=== PATIENT | female | born 1965 | race Caucasian/White ===

== ENCOUNTER 2019-12-22 08:36 | Inpatient (IN) ==
[2019-12-22] MEDS ORDERED: VANCOMYCIN 1 GM/NS 1 GM/250 ML IVPB IV ONE (09:00)
[2019-12-22] MEDS ORDERED: VANCOMYCIN IV PER PHARMACY MISC SCH (09:00)
[2019-12-22] MEDS ORDERED: ZOFRAN IV PRN (10:59)
[2019-12-22] MEDS ORDERED: VENTOLIN HFA INH PRN (11:05)
[2019-12-22 11:13] LABS: BASO# 0.07 X1000 (0.0-0.2); BASO% 0.8 % (0.0-0.8); EOS# 0.18 X1000 (0.0-0.7); HEMOGLOBIN 11.7 g/dL (12.0-16.0); IMM GRAN# 0.08 X1000 (0.0-0.04); IMM GRAN% 0.9 % (0.0-0.5); LYMPH# 1.12 X1000 (1.2-3.4); LYMPH% 12.4 % (20.5-51.1); MCH 27.7 PG (27-31); MCHC 29.3 g/dL (33-37); MCV 94.6 FL (81-99); MONO# 0.71 X1000 (0.11-0.59); MONO% 7.9 % (1.7-9.3); MPV 10.3 FL (7.4-10.4); NEUT# 6.86 X1000 (1.4-6.5); PLT 205 X1000 (130-400); RBC 4.23 XMIL (4.2-5.4); RDW 16.3 % (11.5-14.5); WBC 9.02 X1000 (4.8-10.8)
--- NOTE | 2019-12-22 11:19 | CONSULTATION ---
DATE OF CONSULTATION: 12/22/2019 REASON FOR CONSULTATION: Diabetes management and antibiotic selection. REASON FOR ADMISSION: Left foot cellulitis with diabetic foot ulcer on the left great toe. HISTORY OF PRESENT ILLNESS: Ms. Amita Johnson is a 54-year-old female with a medical history of diabetes mellitus type 2. She has had both second toes amputated. She has had a partial amputation of the right great toe due to MRSA in the past, and an ulcer in that area. She has got a history of aortic stenosis with a murmur, hypothyroidism, arthritis, sleep apnea, and hypertension who has been sent here as a direct admit from Dr. Suarez due to a left great toe diabetic foot ulcer along with cellulitis and IV antibiotic therapy. I believe that there is going to be plans for possible surgical intervention on the left great toe on possibly . Currently, laboratory data is pending. PAST MEDICAL HISTORY: 1. Depression. 2. Diabetes mellitus type 2. 3. Hypertension. 4. Psoriasis. 5. Arthritis. 6. Obstructive sleep apnea, does not wear CPAP. 7. Hypothyroidism. 8. Hyperlipidemia. 9. Aortic stenosis with murmur. 10. Seasonal allergies. 11. Right great toe MRSA with ulcer in the past and partial amputation. 12. Morbid obesity. PAST SURGICAL HISTORY: 1. Bilateral 2nd toes amputated. 2. Right great toe partial amputation. 3. Hysterectomy. SOCIAL HISTORY: Denies tobacco. Drinks wine about twice a year. She denies any illicit drug use. Disabled. Not . No children. Uses a cane and a wheelchair to get around. FAMILY HISTORY: Mother had diabetes. She at 53 from a heart attack. Father had pancreatic cancer, and he also had heart trouble. ALLERGIES: No known drug allergies. HOME MEDICATIONS: 1. Trazodone 50 mg p.o. nightly. 2. Diltiazem 360 mg p.o. nightly. 3. Glimepiride 4 mg p.o. daily. 4. Hydralazine 50 mg p.o. t.i.d. 5. Crestor 20 mg p.o. daily. 6. Metformin 850 mg p.o. daily. 7. Lexapro 20 mg p.o. daily. 8. Nasonex daily. 9. Olmesartan/hydrochlorothiazide 40/25 1 tablet p.o. daily. 10. Oxybutynin extended release 15 mg p.o. daily. 11. Potassium 99 mg p.o. twice daily. 12. Albuterol 8.5 g inhaled twice daily p.r.n. 13. Synthroid 137 mcg p.o. daily. 14. Tresiba 105 units subcutaneous daily. 15. Victoza 1.8 mg subcutaneous daily. REVIEW OF SYSTEMS: Fourteen point review of systems are complete, and all are negative except for those mentioned above in HPI. PHYSICAL EXAMINATION: Vital Signs: Temperature 98.1 degrees, heart rate 57, respiratory rate 18, blood pressure 136/59, and O2 saturation 93% on room air. General: Ms. Johnson is a 54-year-old female. She is in no acute distress. She is able to answer questions appropriately. HEENT: Atraumatic, normocephalic. Pupils equal, round, and reactive to light. Extraocular movements intact. Mucous membranes are moist. Neck: Trachea midline. Cardiovascular: S1, S2. Bradycardic rate and rhythm. No rubs, gallops, or murmurs. She does have a murmur. She has a 3/6 murmur. 1+ lower extremity pitting edema. +2 dorsalis and radial pulses. Unable to assess for JVD due to body habitus. Negative for carotid bruits. Pulmonary: Clear to auscultate bilateral breath sounds. No accessory muscle use or work of breathing noted. GI: Abdomen is soft, nontender, and nondistended. Positive bowel sounds x4. Extremities: Moves all extremities equally with decreased range of motion. Neurologic: Alert and oriented x3. Follows commands. Sensory is intact. Skin: Warm, dry, and intact except for left great toe. There is extensive ulceration over the left great toe with signs and symptoms of infection. LABORATORY DATA: Blood glucose levels 192. IMAGING: None available yet. ASSESSMENT AND PLAN: 1. Left foot cellulitis with ulcer on the left great toe. Dr. Suarez is following. Has been initiated on vancomycin and Zosyn. Cultures have been sent. We will get an x-ray of the left foot if it is not ordered. 2. Diabetes mellitus type 2. We will do pattern blood glucoses, sliding scale insulin, diabetic diet. Adjust insulin dose according to the blood glucose response. 3. Aortic stenosis. I will look to see if there are any old records of an echocardiogram. She has at least a 3/6 murmur, and some lower extremity edema. 4. Morbid obesity. Diet and exercise were discussed. 5. Hypothyroidism. Continue Synthroid. 6. Hyperlipidemia. Continue home medications. 7. Hypertension. We will also continue medications for that. 8. Deep venous thrombosis prophylaxis. We will do Lovenox. 9. Depression. Continue home medications for that. Thank you for this consultation. Dictated by MARY Scott for Duarte Antonio MD cc: MARY Scott MD I agree with most components of history, physical, assessment and plan. A separate addendum has been dictated. MIGUELINA
--- NOTE | 2019-12-22 11:24 | Diag Imaging Result Doc PS360 ---
CHEST-2 VIEWS - 12/22/2019 INDICATION: low sat; sob COMPARISON: 09/02/2018 FINDINGS: The lungs are normally expanded and clear. Heart size and mediastinal contours are normal. No pneumothorax or pleural effusion. IMPRESSION: Negative exam. Electronically signed by Jasmeet Carranza 12/22/2019 11:22 AM
--- NOTE | 2019-12-22 11:25 | Diag Imaging Result Doc PS360 ---
FOOT 2 VIEWS LEFT - 12/22/2019 INDICATION: left great toe ulcer TECHNIQUE: COMPARISON: None FINDINGS: There is soft tissue swelling at the distal great toe. There is a penetrating ulcer at the distal plantar great toe. No fractures or bony erosions. The second toe is absent. There is a small linear metallic foreign body in the soft tissues of the third toe laterally. This measures about 6 mm. There is significant diffuse pedal edema, nonspecific. There is calcified peripheral arterial disease. IMPRESSION: Soft tissue changes as described above. Electronically signed by Jasmeet Carranza 12/22/2019 11:23 AM
[2019-12-22 11:35] LABS: CREATININE 1.2 mg/dL (0.5-0.9); POTASSIUM 4.9 mmol/L (3.5-5.1)
[2019-12-22 12:14] LABS: URINE SOURCE CLEAN CATCH
[2019-12-22] MEDS: LOVENOX SUBQ SCH (12:14)
[2019-12-22] MEDS: ZOSYN 3.375 GM in NS 50 ML IV ONE ×2 (12:14→17:38)
[2019-12-22 12:16] LABS: BILIRUBIN URINE NEGATIVE (NEGATIVE); BLOOD URINE NEGATIVE (NEGATIVE); COLOR YELLOW; GLUCOSE URINE TRACE mg/dL (NEGATIVE); KETONE URINE NEGATIVE (NEGATIVE); LEUKOCYTES URINE NEGATIVE (NEGATIVE); NITRITE URINE NEGATIVE (NEGATIVE); PROTEIN URINE TRACE mg/dL (NEGATIVE); SP GRAVITY URINE 1.025; TURBIDITY URINE CLEAR (CLEAR); UROBILINOGEN URINE NORMAL (NORMAL)
[2019-12-22 12:17] LABS: UR EPITHELIAL CELLS <10 /HPF (<10); URINE BACTERIA NEGATIVE /HPF; URINE RBC <10 /HPF (<10); URINE WBC <10 /HPF (<10)
--- NOTE | 2019-12-22 12:31 | EKG Report ---
Test Performed on : 12/22/2019 11:32:42 AM Test Reason : rythm eval Blood Pressure : / mmHG Vent. Rate : 055 BPM Atrial Rate : 055 BPM P-R Int : 146 ms QRS Dur : 110 ms QT Int : 444 ms P-R-T Axes : 000 013 027 degrees QTc Int : 424 ms Sinus bradycardia. Incomplete left bundle branch block Borderline ECG When compared with ECG of 20-JUL-2019 13:26, Vent. rate has decreased BY 31 BPM T wave amplitude has decreased in Anterior leads QT has shortened Confirmed by Abdulaziz Griffin MD ([id number]) on 12/23/2019 3:40:11 PM
[2019-12-22 12:42] LABS: HEMOGLOBIN A1C 10.9 % (4.8-6.0)
[2019-12-22] MEDS: APRESOLINE PO SCH ×2 (13:41→22:35)
[2019-12-22] MEDS: VANCOMYCIN 2,500 MG in NS 500 ML IV SCH (14:54)
[2019-12-22] MEDS ORDERED: ZOSYN 3.375 GM in NS 50 ML IV SCH (15:30)
[2019-12-22] MEDS: HUMULIN R SUBQ SCH ×2 (16:13→22:36)
--- NOTE | 2019-12-22 17:07 | PROGRESS NOTE ---
DATE: 12/22/2019 Interim to consultation dictated by nurse practitioner, I agree with most components of the consultation. In brief, Ms. Johnson is a 54 years old, lady with past medical history of uncontrolled insulin-dependent diabetes mellitus type 2 with hyperglycemia, morbid obesity, previous history of diabetic leg/foot ulcers requiring amputation, who was admitted directly from the orthopedic physician's office for management of her left foot great toe wound. Ms. Johnson at the time of my evaluation denies any chest pain, shortness of breath, nausea, vomiting, abdominal pain, cough. She states her regular doctor had recently changed her Lantus to Tarceva and her blood sugars have been up and down at home. She states she has been taking her medications regularly though including oral hypoglycemic agents, as well as Victoza subcutaneously. VITALS: Currently, temperature 98.5 degrees, pulse 63, respiratory 18, blood pressure 111/53, saturating 90 to 95 percent on room air. PHYSICAL EXAMINATION: Morbidly obese, not in acute distress. Oral cavity is moist. Air entry bilaterally equal. No wheeze, rhonchi, or crackles. S1, S2 normal. Systolic murmur, crescendo decrescendo best heard at right second intercostal space. No rub or gallop. Abdomen is obese, soft, nontender. She has bilateral lower extremity edema. Her left foot is bandaged. I did not open it since it was recently dressed. However, I did look at the photograph of her great toe and she had a wound affecting plantar aspect of her great toe with callus formation and surrounding black pigmentation. Though the x-ray was unremarkable she could likely have a deep-seated infection. There was no drainage noted. The blood culture and Gram culture are in lab. She is alert and oriented x3. LABS: Suggestive of WBC of 9,000, hemoglobin 11.7, platelet 205,000, BUN of 42, creatinine 1.2, creatinine suggestive of chronic kidney disease stage 3. ASSESSMENT AND PLAN: 1. Acute left foot cellulitis with ulcer on the plantar aspect of left great toe. Though the x- ray was unremarkable, there is suspicion of infection extending from soft tissue to the tissues deep inside. Orthopedic team on board and primary management after them. Continue intravenous vancomycin and modify intravenous Zosyn dose according to her kidney function. Follow up blood culture and wound culture results. Considering her prior history of methicillin-resistant Staphylococcal aureus, she would need methicillin-resistant Staphylococcal aureus, gram-negative and anaerobic coverage. We will continue to follow. 2. Uncontrolled insulin-dependent diabetes mellitus type 2 with hyperglycemia. The patient took her dose of Tarceva before coming to the hospital. I will keep her on Lantus, metformin, Victoza, and I will also keep her on sliding scale insulin. Her most recent blood sugars have been close to 79. In future I may consider adding canagliflozin. Considering inpatient hospitalization, I am holding her Glucophage and glimepiride, as they are associated with frequent episodes of hypoglycemia in an inpatient setting. The patient was counseled about weight reduction. 3. Others. Continue diltiazem, hydralazine, Olmesartan for essential hypertension. I am holding her hydrochlorothiazide. 4. Continue Lexapro for anxiety, levothyroxine for hypothyroidism, oxybutynin for bladder spasm, and rosuvastatin for hyperlipidemia. 5. Thank you for allowing us to partake in this patient's care. We will continue to follow. Plan of care extensively discussed with Ms. Johnson. All of her questions have been answered. cc: Duarte Antonio MD
[2019-12-22] MEDS: TYLENOL PO PRN (17:37)
[2019-12-22] MEDS: ZOSYN 2.25 GM in NS 50 ML IV SCH (17:46)
--- NOTE | 2019-12-22 19:33 | ECHO REPORT ---
ORDER DATE: 12/22/2019 INDICATION: Heart murmur, edema. The patient weight is 146 kg, equal to 321 pounds. Optison was added to optimize visualization of the endocardium. M-MODE MEASUREMENTS: Left ventricle end diastole: 5.7. Left ventricle end systole: 3.9. Posterior wall: 0.8. Interventricular septum: 1.0. Left atrium: 4.1. Aortic diameter: 3.3. SUMMARY OF 2-DIMENSIONAL IMAGIN. Left ventricular function appears to be normal. Ejection fraction is estimated grossly at 55% to 60%. There is no wall motion abnormality noted. 2. The right ventricle appears to be slightly prominent. 3. The left atrium is mildly enlarged. 4. The aortic valve is calcified. It shows restricted opening. Maximum gradient across the outflow tract of the left ventricle is 52 mmHg, and mean gradient is 30 mmHg. Valve area is grossly estimated at 1.3 cm2, indicating a moderate degree of aortic stenosis. 5. The mitral valve shows calcification. Color flow mapping shows a mild degree of regurgitation. 6. Pulse wave Doppler of mitral inflow a normal E/A ratio. 7. Tissue Doppler of septal and lateral mitral annulus averages 10 cm. Tissue Doppler indicates normal diastolic function. 8. The tricuspid valve is unremarkable. 9. The pulmonic valve also appears to be unremarkable. 10.There is no pericardial effusion, no mass, and no thrombus. Clinical correlation recommended. cc: MD Veronica Bustillo CRNP Siddharth Patel, MD
[2019-12-22] MEDS: DESYREL PO SCH (22:35)
[2019-12-22] MEDS: CARDIZEM LA PO SCH (22:35)
[2019-12-23] MEDS: ZOSYN 2.25 GM in NS 50 ML IV SCH ×4 (00:09→17:11)
[2019-12-23] MEDS: TYLENOL PO PRN ×3 (00:09→21:45)
[2019-12-23] MEDS ORDERED: ZOSYN ONE (00:10)
[2019-12-23] MEDS: SYNTHROID PO SCH (06:06)
[2019-12-23] MEDS: HUMULIN R SUBQ SCH ×4 (06:35→21:48)
[2019-12-23 07:42] LABS: BASO# 0.08 X1000 (0.0-0.2); BASO% 0.8 % (0.0-0.8); EOS# 0.19 X1000 (0.0-0.7); HEMATOCRIT 36.9 % (37.0-47.0); IMM GRAN# 0.08 X1000 (0.0-0.04); IMM GRAN% 0.8 % (0.0-0.5); LYMPH# 1.02 X1000 (1.2-3.4); LYMPH% 10.5 % (20.5-51.1); MCH 28.1 PG (27-31); MCHC 29.8 g/dL (33-37); MCV 94.4 FL (81-99); MONO# 0.75 X1000 (0.11-0.59); MONO% 7.7 % (1.7-9.3); MPV 9.6 FL (7.4-10.4); NEUT# 7.59 X1000 (1.4-6.5); NEUT% 78.2 % (42.2-75.2); PLT 209 X1000 (130-400); RBC 3.91 XMIL (4.2-5.4); RDW 16.2 % (11.5-14.5); WBC 9.71 X1000 (4.8-10.8)
[2019-12-23] MEDS: VENTOLIN HFA INH PRN ×2 (07:53→19:38)
[2019-12-23 08:10] LABS: ALB/GLOB RATIO 1.1; ALBUMIN 3.3 g/dL (3.5-5.0); CALCIUM 9.4 mg/dL (8.8-10.2); CREATININE 1.1 mg/dL (0.5-0.9); MAGNESIUM 1.9 mg/dL (1.5-2.7); POTASSIUM 4.6 mmol/L (3.5-5.1); TOTAL BILIRUBIN 0.64 mg/dL (0.20-1.00); TOTAL PROTEIN 6.4 g/dL (6.3-8.3)
[2019-12-23] MEDS ORDERED: INSULIN PEN NEEDLES ONE (08:18)
[2019-12-23] MEDS ORDERED: GLUCOPHAGE PO SCH (09:00)
[2019-12-23] MEDS ORDERED: LANTUS INSULIN SUBQ SCH (09:00)
[2019-12-23] MEDS ORDERED: AMARYL PO SCH (09:00)
[2019-12-23] MEDS ORDERED: HYDROCHLOROTHIAZIDE PO SCH (09:00)
--- NOTE | 2019-12-23 09:46 | HISTORY AND PHYSICAL ---
CHIEF COMPLAINT: Left foot wound. HISTORY OF PRESENT ILLNESS: Dr. Suarez has been following Ms. Johnson in the office for quite some time regarding this left foot. She has a history of type 2 diabetes, chronic kidney disease, and multiple diabetic foot wound. This left wound Dr. Suarez has been treating in clinic for several weeks. He placed her on oral antibiotics last week. When she returned to clinic, the toe did not look any better. She actually had cellulitis and swelling to the foot and ankle. We sent her for FARHAD studies as well last week. Those came back relatively clean. While she was seen in the office, it was decided that she needs to be admitted for IV antibiotics and to prepare for an amputation of this left great toe. PAST MEDICAL HISTORY: 1. Type 2 diabetes mellitus. 2. Peripheral neuropathy. 3. Chronic kidney disease. PAST SURGICAL HISTORY: Right foot surgery. SOCIAL HISTORY: She does live in her home. She has a very supportive sister. She denies tobacco, alcohol, or illicit drug use. FAMILY HISTORY: Noncontributory. REVIEW OF SYSTEMS: A 10 point review of systems was completed and negative other than what is mentioned above in the HPI. PHYSICAL EXAMINATION: GENERAL: Ms. Johnson is a very pleasant female in no acute distress. NEUROLOGICAL: She is alert and oriented x3 with no focal deficits. HEENT: Head is atraumatic, normocephalic. Pupils are equal, round, reactive to light. CARDIOVASCULAR: Regular rate and rhythm. PULMONARY: Breathing is even and unlabored with equal chest rise. ABDOMEN: Appears nondistended. EXTREMITIES: Left lower extremity exam: She does have a diabetic ulcer to this left great toe. There is drainage today. The skin around it is very damp. She does have erythema surrounding the wound, as well as into the midfoot and ankle. She does have quite a bit of edema on this left side as well. She does have some necrotic tissue to the tip of the toe as well. She does have a 1+ palpable pedal pulse. LAB WORK: Pending. ASSESSMENT: 1. Left diabetic foot ulcer. 2. Left foot cellulitis. PLAN: We are planning to admit Ms. Johnson for IV antibiotic therapy. I will start her on Zosyn and vancomycin for empiric treatment. We will get cultures of the wound prior to starting her antibiotics. We will send that off for culture and Gram stain. We will get CBC and BMP on admission as well. We will consult the hospitalist to assist with antibiotic management, as well as diabetic control. We will plan to resume her home medications as needed, and we are looking at possibly doing a left great toe amputation on . We will make her n.p.o. Saturday and get consents for that. Please let us know if you have any questions or concerns. Dictated by MARY Valle for Duarte Suarez MD cc: MARY Valle MD Siddharth Patel, MD
[2019-12-23] MEDS: BENICAR PO SCH (11:32)
[2019-12-23] MEDS: APRESOLINE PO SCH ×3 (11:33→17:54)
[2019-12-23] MEDS: LEXAPRO PO SCH (11:34)
[2019-12-23] MEDS: DITROPAN XL PO SCH (11:35)
[2019-12-23] MEDS: LANTUS INSULIN SUBQ SCH (11:41)
[2019-12-23] MEDS: LOVENOX SUBQ SCH (11:42)
[2019-12-23] MEDS: VICTOZA SUBQ SCH (11:43)
[2019-12-23] MEDS: NASONEX NASAL SPRAY NAS SCH (11:59)
--- NOTE | 2019-12-23 12:41 | ORTHOPAEDICS PROGRESS NOTE ---
DATE: 12/23/2019 SUBJECTIVE: Ms. Johnson is lying in the bed this morning. Overall feeling okay. She is feeling a little bit better than yesterday. OBJECTIVE: Left Lower Extremity Examination: I took the dressing down. Her erythema at the leg looked better and to the foot as well. The toe looked about the same. There is some necrotic tissue on more of the plantar aspect of the toe and it does seem like it probes to bone. Radiographs: Three-view of the left foot shows what looks like some erosion of her distal phalanx at the very tip. ASSESSMENT: 1. Left great toe distal phalanx osteomyelitis. 2. Left diabetic foot ulcer. 3. Diabetes with neuropathy. PLAN: I have discussed with Ms. Johnson about her toe. I would recommend a left great toe partial amputation to excise the wound and also amputate the distal phalanx to get back to good healthy tissue so she can heal. I went over with her the procedure, risks, benefits, and potential complications. Risks include, but are not limited to infection, wound healing problems, damage to nerves, arteries, veins, phantom limb pain, anesthesia-related risks, and blood clots. After discussing these with the patient, she expressed understanding and wished to proceed. We will plan on doing this tomorrow, on 12/24/2019. She will be nothing per oral after midnight tonight. It looks like her cultures did come back as methicillin-resistant Staphylococcus aureus, which she has had in the past. We will more than likely get her set up with intravenous antibiotics after surgery. cc: MD Duarte Marroquin MD
[2019-12-23] MEDS: VANCOMYCIN 2,500 MG in NS 500 ML IV SCH (13:48)
[2019-12-23] MEDS ORDERED: LASIX PO ONE (13:55)
--- NOTE | 2019-12-23 14:24 | PROGRESS NOTE ---
DATE: 12/23/2019 INTERVAL HISTORY: No acute events overnight. She did have an episode of hypoglycemia at medical staff manager time. In the morning time, after breakfast, her blood sugar increased appropriately. SUBJECTIVE: Ms. Johnson denies any chest pain, shortness of breath, nausea, vomiting, abdominal pain. She denies undue pain in the lower extremity. She denies burning while passing urine. VITALS: Temperature 98.2 degrees, pulse 63, respiratory rate 16, blood pressure 121/55, saturating 96% on room air. PHYSICAL EXAMINATION: Morbidly obese. Not in acute distress. Oral cavity is moist. Lungs: Air entry bilaterally equal. No wheeze, rhonchi, or crackles. Cardiovascular: S1, S2 normal. Crescendo-decrescendo murmur, best heard at right second intercostal space. No rub or gallop. Abdomen: Obese, soft, nontender. Bilateral lower extremity edema. She has a left foot which is bandaged. Intact dorsalis pedis pulses bilaterally. LABS: Suggestive of hemoglobin of 11, platelets of 209,000. BUN 28, creatinine 1.1, blood glucose has been 58 to 211. Wound culture is growing gram-positive cocci. No new imaging. ASSESSMENT AND PLAN: 1. Acute cellulitis and abscess of left foot toe due to a diabetic foot ulcer on the plantar aspect. Orthopedic team likely planning partial amputation on 12/24/2019. Continue intravenous vancomycin and intravenous Zosyn until final wound cultures come back. Previously, she had a history of methicillin-resistant Staphylococcus aureus diabetic foot infections requiring partial amputations of toes of bilateral feet. 2. Uncontrolled insulin-dependent diabetes mellitus type 2 with hyperglycemia. I discussed with the patient about weight reduction. I will continue her current dose of Lantus, Victoza, and sliding scale insulin. I am holding her oral hypoglycemic agent to prevent inpatient hypoglycemia. 3. Essential hypertension. Continue home diltiazem, hydralazine, irbesartan, and hold hydrochlorothiazide. 4. History of aortic stenosis. Echocardiogram suggests ejection fraction of 55 to 60 percent without any regional wall motion abnormality, indicating moderate degree of aortic stenosis. She would need outpatient followup with coil rewind machine operator. Continue Hydralazine. 5. Continue Lexapro for anxiety; levothyroxine for hypothyroidism; oxybutynin for bladder spasm; rosuvastatin for hyperlipidemia. She follows up with a social media director for her chronic kidney disease stage 2 to stage 3A. Thank you for allowing me to take part in this patient's care. We will continue to follow. cc: MD MIGUELINA Howell
[2019-12-23] MEDS: DESYREL PO SCH (21:44)
[2019-12-23] MEDS: CRESTOR PO SCH (21:45)
[2019-12-23] MEDS: CARDIZEM LA PO SCH (21:46)
[2019-12-24] MEDS: ZOSYN 2.25 GM in NS 50 ML IV SCH ×2 (02:10→10:25)
[2019-12-24 06:23] LABS: BASO# 0.05 X1000 (0.0-0.2); BASO% 0.8 % (0.0-0.8); EOS# 0.22 X1000 (0.0-0.7); EOS% 3.6 % (0.0-10.0); HEMATOCRIT 36.8 % (37.0-47.0); HEMOGLOBIN 10.9 g/dL (12.0-16.0); IMM GRAN# 0.02 X1000 (0.0-0.04); IMM GRAN% 0.3 % (0.0-0.5); LYMPH# 1.03 X1000 (1.2-3.4); LYMPH% 16.8 % (20.5-51.1); MCH 28.1 PG (27-31); MCHC 29.6 g/dL (33-37); MCV 94.8 FL (81-99); MONO# 0.63 X1000 (0.11-0.59); MONO% 10.3 % (1.7-9.3); NEUT# 4.18 X1000 (1.4-6.5); NEUT% 68.2 % (42.2-75.2); PLT 191 X1000 (130-400); RBC 3.88 XMIL (4.2-5.4); WBC 6.13 X1000 (4.8-10.8)
[2019-12-24 06:41] LABS: CALCIUM 9.2 mg/dL (8.8-10.2); CREATININE 1.3 mg/dL (0.5-0.9); MAGNESIUM 2.2 mg/dL (1.5-2.7); POTASSIUM 4.5 mmol/L (3.5-5.1)
[2019-12-24] MEDS: SYNTHROID PO SCH (06:48)
[2019-12-24] MEDS: HUMULIN R SUBQ SCH ×4 (06:49→23:00)
[2019-12-24] MEDS: VENTOLIN HFA INH PRN ×2 (07:32→19:35)
[2019-12-24] MEDS: LOVENOX SUBQ SCH ×2 (10:26→15:48)
[2019-12-24] MEDS: APRESOLINE PO SCH ×3 (10:26→16:28)
[2019-12-24] MEDS: LEXAPRO PO SCH (10:27)
[2019-12-24] MEDS: LANTUS INSULIN SUBQ SCH (10:27)
[2019-12-24] MEDS: BENICAR PO SCH (10:27)
[2019-12-24] MEDS: DITROPAN XL PO SCH (10:27)
[2019-12-24] MEDS: NASONEX NASAL SPRAY NAS SCH (10:28)
[2019-12-24] MEDS: VICTOZA SUBQ SCH (10:28)
--- NOTE | 2019-12-24 10:53 | ORTHOPAEDICS PROGRESS NOTE ---
DATE: 12/24/2019 SUBJECTIVE DATA: Ms. Johnson is lying in bed. Overall, she is feeling well. She is a little nervous about surgery today without her sister being there. OBJECTIVE DATA: Left lower extremity exam: The dressing does have some purulent drainage there. They are changing that daily. She still has some erythema to the foot. The ulcer looks about the same. ASSESSMENT: 1. Left great toe distal phalanx osteomyelitis. 2. Left diabetic foot ulcer. 3. Diabetes type 2 with neuropathy. 4. Left leg cellulitis. PLAN: We are going to plan to proceed with amputation of her left great toe today. It will be later this afternoon. She is NPO. I will make sure that they are monitoring her sugar while she is not eating today and then we will plan on doing it this afternoon. Risks and benefits have already been discussed by Dr. Suarez. We will plan on talking to the sister throughout the day and keeping her updated. Dictated by MARY Valle for Duarte Suarez MD cc: MARY Valle MD Siddharth Patel, MD
[2019-12-24] MEDS ORDERED: DIPRIVAN 1% ONE (13:04)
[2019-12-24] MEDS: VANCOMYCIN 2,500 MG in NS 500 ML IV SCH (13:27)
--- NOTE | 2019-12-24 14:48 | PROGRESS NOTE ---
DATE: 12/24/2019 INTERVAL HISTORY: No acute events overnight. Her blood sugars have been within acceptable range. She made over 3 L of urine after a dose of Lasix yesterday. SUBJECTIVE: Ms. Johnson denies chest pain, shortness of breath, cough, nausea, vomiting, abdominal pain. We discussed about chronic kidney disease. Discussed about need for intravenous antibiotics. I answered all of her questions. VITALS: Temperature 98.2 degrees, pulse 80, respiratory 18, blood pressure 130/67, saturating 94% on room air. PHYSICAL EXAMINATION: Morbidly obese, not in acute distress. Oral cavity is moist. Air entry bilaterally equal. No wheeze, rhonchi, crackles. Cardiovascular: S1, S2 normal. Crescendo- decrescendo murmur best heard in right second intercostal space. No rub or gallop. Abdomen: Soft, obese, nontender. Bilateral lower extremity edema extending up to thigh level. Her left foot is bandaged and there is some erythema on the anterior aspect of lower ladd. LABS: Suggestive of WBC of 6.1, hemoglobin 10.9, platelet 191,000, BUN 27, and creatinine 1.3. Wound culture is growing Methicillin-resistant Staphylococcus aureus. No new imaging. ASSESSMENT AND PLAN: 1. Acute cellulitis and abscess of left foot great toe due to diabetic foot ulcer due to MRSA. Orthopedic team planning partial amputation on December 23. Continue intravenous vancomycin with close followup of kidney function. I will stop intravenous Zosyn. 2. Uncontrolled insulin-dependent diabetes mellitus type 2 with hyperglycemia, currently well controlled on current dose of Lantus, Victoza, and sliding scale. Continue to hold oral hypoglycemic agents. 3. Essential hypertension. Continue diltiazem, hydralazine, and I will hold her olmesartan at the moment considering she is to undergo surgery to prevent perioperative acute kidney injury. I will resume it after surgery. 4. History of aortic stenosis. Echocardiogram suggestive of moderate aortic stenosis. She needs outpatient cardiology follow up. Continue diltiazem and hydralazine. 5. Others: Continue Lexapro for anxiety; levothyroxine for hypothyroidism; oxybutynin for bladder spasms; rosuvastatin for hyperlipidemia. DISPOSITION: As per the primary team. Thank you for allowing us to take part in this patient's care. We will continue to follow. cc: Duarte Antonio MD [facility]
[2019-12-24] MEDS: MORPHINE ONE ×3 (16:27→16:38)
--- NOTE | 2019-12-24 16:48 | OPERATIVE NOTE ---
PROCEDURE DATE: 12/24/2019 PREOPERATIVE DIAGNOSIS: Left great toe infection with osteomyelitis of the distal phalanx. POSTOPERATIVE DIAGNOSIS: Left great toe infection with osteomyelitis of the distal phalanx. PROCEDURE: Left great toe amputation to the IP joint. SURGEON: Dr. Duarte Suarez. AUTOMOTIVE SERVICE ASSISTANT: MARY Valle, who was an integral part of the case, helping with all aspects of the case, helping increase our OR efficiency greatly. ANESTHESIA: General with LMA. TOURNIQUET TIME: Less than 30 minutes. IMPLANT: None. DISPOSITION: To PACU, hemodynamically stable. INDICATION FOR PROCEDURE: Ms. Johnson is a 54-year-old female who unfortunately developed a sore on this left great toe. It advanced pretty quickly, the wound went down to bone. She had a little bit of bone erosion on her x-ray, so discussed with her about operative intervention for distal tip amputation. She expressed understanding and wished to proceed. DESCRIPTION OF PROCEDURE: Ms. Johnson was identified in the preoperative holding area. The left foot was marked as correct surgical site. She was then wheeled to the operating room, placed supine on the operating table. All bony prominences well padded. She was induced under general anesthesia. LMA was placed. Left lower extremity then prepped with chlorhexidine gluconate scrub and then ChloraPrep, and draped in normal sterile fashion. Surgical pause was performed. We identified the correct patient, correct side, and the correct procedure. Preoperative antibiotics were given. We used Esmarch at the calf only for tourniquet. I then made a fishmouth type incision right at the IP joint of the great toe and that took all of the ulcer area and most all the area with erythema as well. We amputated through the IP joint. I then rongeured back some of the proximal phalanx so that would not be prominent and that the soft tissue could heal down to raw bone. We then irrigated everything copiously with normal saline. After very thorough irrigation and debridement, I was able to then close the extensor tendon to the flexor with 0 Vicryl, and then 2-0 Vicryl for the subcutaneous and nylon on the skin. Soft dressing was applied. She was then wheeled from general anesthesia, moved her own bed and taken to PACU in stable condition. PLAN: Postoperatively, she is nonweightbearing, left lower extremity and she will remain in the hospital on IV antibiotics for now. cc: MD Duarte Marroquin MD
[2019-12-24] MEDS: DESYREL PO SCH (22:52)
[2019-12-24] MEDS: CRESTOR PO SCH (22:52)
[2019-12-24] MEDS: TYLENOL PO PRN (22:52)
[2019-12-24] MEDS: CARDIZEM LA PO SCH (22:53)
[2019-12-24] MEDS: PERIDEX MT SCH (23:00)
[2019-12-25] MEDS: SYNTHROID PO SCH (06:30)
[2019-12-25 06:52] LABS: BASO# 0.07 X1000 (0.0-0.2); BASO% 1.1 % (0.0-0.8); EOS# 0.24 X1000 (0.0-0.7); EOS% 3.7 % (0.0-10.0); HEMATOCRIT 39.6 % (37.0-47.0); HEMOGLOBIN 11.4 g/dL (12.0-16.0); IMM GRAN# 0.04 X1000 (0.0-0.04); IMM GRAN% 0.6 % (0.0-0.5); LYMPH# 1.48 X1000 (1.2-3.4); LYMPH% 22.8 % (20.5-51.1); MCH 27.5 PG (27-31); MCHC 28.8 g/dL (33-37); MCV 95.4 FL (81-99); MONO# 0.66 X1000 (0.11-0.59); MONO% 10.2 % (1.7-9.3); MPV 9.8 FL (7.4-10.4); NEUT% 61.6 % (42.2-75.2); PLT 204 X1000 (130-400); RBC 4.15 XMIL (4.2-5.4); RDW 16.3 % (11.5-14.5); WBC 6.49 X1000 (4.8-10.8)
[2019-12-25] MEDS: HUMULIN R SUBQ SCH ×4 (07:00→21:48)
[2019-12-25 07:14] LABS: CALCIUM 9.2 mg/dL (8.8-10.2); CREATININE 1.2 mg/dL (0.5-0.9); POTASSIUM 4.3 mmol/L (3.5-5.1)
[2019-12-25 07:27] LABS: EOS 6 % (1-10); LYMPHS 26 % (21-51); MONO 2 % (1-9); SEGS 66 % (42-75)
[2019-12-25] MEDS: VENTOLIN HFA INH PRN ×2 (07:50→19:44)
--- NOTE | 2019-12-25 08:10 | ORTHOPAEDICS PROGRESS NOTE ---
DATE: 12/25/2019 SUBJECTIVE DATA: Ms. Johnson is laying in bed. She states she feels much better overall. She is having some pain to the left great toe. OBJECTIVE DATA: Left lower extremity exam: The surgical dressing is in place. There is a little bit of bloody drainage, but not much. Otherwise, the dressing is clean, dry and intact. The erythema to the foot is much better. She still has a little bit of discoloration to the ladd area. ASSESSMENT: Status post left great toe amputation to the interphalangeal joint. PLAN: I am going to leave the dressing in place for now. We will plan on taking it all down tomorrow. We are going to continue to let her get IV antibiotic therapy. We will plan on taking the dressing down tomorrow, taking a look at everything and, if things look good, discharging her tomorrow. She will not need long-term IV antibiotic therapy. Dictated by MARY Valle for Duarte Suarez MD cc: MARY Valle MD Cesar Garcia-Rodriguez, MD
[2019-12-25] MEDS: VICTOZA SUBQ SCH (09:47)
[2019-12-25] MEDS: LEXAPRO PO SCH (09:49)
[2019-12-25] MEDS: NASONEX NASAL SPRAY NAS SCH (09:49)
[2019-12-25] MEDS: LANTUS INSULIN SUBQ SCH (09:49)
[2019-12-25] MEDS: LOVENOX SUBQ SCH (09:50)
[2019-12-25] MEDS: DITROPAN XL PO SCH (09:50)
[2019-12-25] MEDS: NORCO-5 PO PRN ×4 (09:50→21:46)
[2019-12-25] MEDS: APRESOLINE PO SCH ×3 (09:50→18:39)
[2019-12-25] MEDS: PERIDEX MT SCH ×2 (09:51→21:46)
[2019-12-25] MEDS ORDERED: PNEUMOVAX 23 IM ONE (09:59)
[2019-12-25] MEDS: VANCOMYCIN 2,500 MG in NS 500 ML IV SCH (14:17)
--- NOTE | 2019-12-25 16:24 | PROGRESS NOTE ---
DATE: 12/25/2019 SUBJECTIVE: The patient reports feeling fine. Denies any fever or chills. OBJECTIVE: Vital Signs: Temperature 98.4 degrees, heart rate 84, respiratory rate 18, blood pressure 102/54, and O2 saturation was 96% on 2 L nasal cannula. general: This is a 54-year-old female lying in bed in no acute distress. Cardiovascular: S1, S2 heard. No murmurs, gallops, or rubs. Regular rate and rhythm. Respiratory: Clear bilaterally to auscultation. No work of breathing or using accessory muscles. Abdomen: Soft. Nontender to palpation. Bowel sounds present. No organomegaly. Extremities: Bilateral lower extremity edema extending up to the tight level. Left foot is covered by dressing. LABORATORY DATA: Reviewed. ASSESSMENT AND PLAN: 1. Acute cellulitis and abscess of the left foot great toe due to diabetic foot ulcer due to methicillin-resistant Staphylococcus aureus. Orthopaedic is following with this patient. They are planning to keep her over the weekend with antibiotics and most likely let her go Saturday. We will follow recommendations. 2. Uncontrolled insulin-dependent diabetes mellitus type 2. We will continue with Lantus, Victoza, and sliding scale insulin. We will continue with the same management. 3. Essential hypertension. We will continue with diltiazem and hydralazine. We will continue also with olmesartan as well. 4. History of aortic stenosis. Aware. She will be seen by Cardiology as an outpatient. DISPOSITION: As per primary team. cc: Tee Harris MD MTDMai
[2019-12-25] MEDS: CARDIZEM LA PO SCH (21:45)
[2019-12-25] MEDS: DESYREL PO SCH (21:46)
[2019-12-25] MEDS: CRESTOR PO SCH (21:47)
[2019-12-26 05:54] LABS: BASO# 0.07 X1000 (0.0-0.2); BASO% 1.4 % (0.0-0.8); EOS# 0.24 X1000 (0.0-0.7); EOS% 4.8 % (0.0-10.0); HEMATOCRIT 35.3 % (37.0-47.0); HEMOGLOBIN 10.4 g/dL (12.0-16.0); IMM GRAN# 0.03 X1000 (0.0-0.04); IMM GRAN% 0.6 % (0.0-0.5); LYMPH# 1.26 X1000 (1.2-3.4); MCHC 29.5 g/dL (33-37); MCV 94.9 FL (81-99); MONO# 0.58 X1000 (0.11-0.59); MONO% 11.5 % (1.7-9.3); MPV 10.1 FL (7.4-10.4); NEUT# 2.87 X1000 (1.4-6.5); NEUT% 56.7 % (42.2-75.2); PLT 187 X1000 (130-400); RBC 3.72 XMIL (4.2-5.4); RDW 16.1 % (11.5-14.5); WBC 5.05 X1000 (4.8-10.8)
[2019-12-26 06:37] LABS: CALCIUM 8.4 mg/dL (8.8-10.2); CREATININE 1.3 mg/dL (0.5-0.9); MAGNESIUM 2.5 mg/dL (1.5-2.7); POTASSIUM 4.3 mmol/L (3.5-5.1)
[2019-12-26] MEDS: HUMULIN R SUBQ SCH ×4 (06:47→21:30)
[2019-12-26] MEDS: SYNTHROID PO SCH (06:48)
[2019-12-26] MEDS: LOVENOX SUBQ SCH (08:37)
[2019-12-26] MEDS: NASONEX NASAL SPRAY NAS SCH (08:37)
[2019-12-26] MEDS: DITROPAN XL PO SCH (08:38)
[2019-12-26] MEDS: NORCO-5 PO PRN ×3 (08:38→19:22)
[2019-12-26] MEDS: LEXAPRO PO SCH (08:39)
[2019-12-26] MEDS: LANTUS INSULIN SUBQ SCH (08:40)
[2019-12-26] MEDS: VICTOZA SUBQ SCH (08:40)
[2019-12-26] MEDS: PERIDEX MT SCH ×2 (08:41→21:29)
[2019-12-26] MEDS: APRESOLINE PO SCH ×3 (08:42→17:14)
--- NOTE | 2019-12-26 11:44 | PROGRESS NOTE ---
DATE: 12/26/2019 SUBJECTIVE: The patient reports feeling okay. Denies any fever, chills. She reports much better according to her after she got the surgery. OBJECTIVE: Vital Signs: Temperature degrees 97.8 degrees, heart rate 55, respiratory 20, blood pressure 114/45, O2 saturation 94% on 2 L nasal cannula. General: This is a 54-year-old female, lying in bed, in no acute distress. Cardiovascular: S1, S2 heard. No murmurs, gallops, or rubs. Regular rate and rhythm. Respiratory: Clear bilaterally to auscultation. No work of breathing or using accessory muscles. Abdomen: Soft, nontender to palpation. Bowel sounds present. No organomegaly. Extremities: Bilateral lower extremity edema extending up to the thigh level and the left foot is covered by dressing. Neurological: Patient alert and oriented x3. Moves 4 extremities. LABORATORY DATA: White cell count 5.05, hemoglobin 10.4, hematocrit 35.3, platelets 197,000. BMP is remarkable for creatinine of 1.3. ASSESSMENT AND PLAN: 1. Cellulitis and abscess of the left foot great toe due to diabetic foot ulcer due to Methicillin-resistant Staphylococcus aureus. Clinically, this patient is doing fine. We will continue with current antibiotics at least until Saturday. Orthopedics is following this patient, we will follow recommendation. 2. Uncontrolled diabetes mellitus type 2. We will continue with Victoza, Lantus and sliding scale insulin. We will continue with the same medications. 3. Hypertension. We will continue with olmesartan, diltiazem and hydralazine. 4. History of aortic stenosis. Aware. The patient will need to be seen by Cardiology as an outpatient. 5. Disposition as per primary team. cc: Tee Harris MD
--- NOTE | 2019-12-26 14:26 | ORTHOPAEDICS PROGRESS NOTE ---
DATE: 12/26/2019 SUBJECTIVE: Ms. Johnson lying in bed this afternoon. Overall she is feeling okay. OBJECTIVE: Left lower extremity exam: Took the dressing down today. The wound looks good. There is still some erythema to the toe. I do not see any drainage though. ASSESSMENT: Status post left great toe amputation. PLAN: I discussed with Ms. Johnson about her toe. We are going to continue to watch it, and if that erythema does not improve or the wound begins to break down, then we will have to take the amputation back further. I did discuss that with her. She is going to continue on vancomycin since she has methicillin-resistant Staph aureus that is susceptible to vancomycin. cc: MD Tee Marroquin MD
[2019-12-26] MEDS: VANCOMYCIN 2,500 MG in NS 500 ML IV SCH (14:36)
[2019-12-26] MEDS: VENTOLIN HFA INH PRN (19:43)
[2019-12-26] MEDS: CARDIZEM LA PO SCH (21:29)
[2019-12-26] MEDS: CRESTOR PO SCH (21:29)
[2019-12-26] MEDS: DESYREL PO SCH (21:29)
[2019-12-27] MEDS: HUMULIN R SUBQ SCH ×4 (06:35→21:32)
[2019-12-27] MEDS: SYNTHROID PO SCH (06:35)
[2019-12-27] MEDS: NORCO-5 PO PRN ×2 (07:17→18:16)
[2019-12-27] MEDS: VENTOLIN HFA INH PRN ×2 (08:28→19:53)
[2019-12-27] MEDS: LANTUS INSULIN SUBQ SCH (09:59)
[2019-12-27] MEDS: LEXAPRO PO SCH (10:00)
[2019-12-27] MEDS: NASONEX NASAL SPRAY NAS SCH (10:00)
[2019-12-27] MEDS: PERIDEX MT SCH ×2 (10:00→20:26)
[2019-12-27] MEDS: DITROPAN XL PO SCH (10:00)
[2019-12-27] MEDS: VICTOZA SUBQ SCH (10:01)
[2019-12-27] MEDS: APRESOLINE PO SCH (10:02)
[2019-12-27] MEDS: LOVENOX SUBQ SCH (10:02)
--- NOTE | 2019-12-27 11:58 | ORTHOPAEDICS PROGRESS NOTE ---
DATE: 12/27/2019 SUBJECTIVE: Ms. Johnson is lying in bed this morning. Overall, feeling okay. She did well overnight, not really complaining of much pain. OBJECTIVE: Left lower extremity exam: I took the dressing down today. The incision still looks good. There is no drainage there. Her toe still has a little bit of erythema to mainly the dorsal aspect, not as much to the plantar aspect. There is still just a little bit of swelling to the foot overall, and just some very slight erythema to the lower leg. ASSESSMENT: 1. Left lower extremity cellulitis. 2. Left great toe distal phalanx osteomyelitis, status post great toe partial amputation. PLAN: I discussed with Ms. Johnson about that little bit of redness. Will continue to follow it. The wound does look like it is healing at this point. I do not see any drainage out of there or any dehiscence. Will keep her on IV vancomycin. Will work to get everything set up for outpatient treatment. She will need Light Equipment Operator working with her tomorrow to get IV antibiotics set up. I would think at this point, since she has had the cellulitis and there is still some erythema there, that we will shoot for 3 or 4 weeks of IV vancomycin as outpatient. Dr. Ruiz was in the room from the Medicine Service, and he is going to order the PICC line, and will continue to follow. cc: Duarte Suarez MD
[2019-12-27] MEDS: VANCOMYCIN 2,500 MG in NS 500 ML IV SCH (13:58)
--- NOTE | 2019-12-27 15:03 | PROGRESS NOTE ---
DATE: 12/27/2019 INTERVAL HISTORY: Patient pain well controlled. No acute events overnight. No new complaints. Discussed with surgery. They plan on keeping an eye on her toe for the next couple of days but if it improves or remains stable she will likely go home on extended course of IV vancomycin. If it worsens then may need further amputation. REVIEW OF SYSTEMS: Twelve point review of systems negative except as per interval history. LABS: Glucose 164 to 278. VITALS: T-max 99.1, pulse 58, respirations 20, blood pressure 176/93, O2 saturation 92% on room air. PHYSICAL EXAMINATION: General: No acute distress. Vitals as above. HEENT: Normocephalic, atraumatic. Moist mucous membranes. No cervical adenopathy. Cardiovascular: Regular rate and rhythm. Left lower sternal border murmur noted. Pulmonary: Clear to auscultation bilaterally. No wheezing, rales or rhonchi. Abdomen: Soft, nontender, nondistended, obese. Bowel sounds positive. Extremities: Peripheral pulses intact, 1+ bilateral lower extremity edema. Left 1st toe with recent amputation, surgical sutures in place. Toe remains erythematous and warm. Erythema does not extend proximal to the toe. No drainage noted. Neurologic: Cranial nerves grossly intact. No focal deficits identified . Psychiatric: Normal mood and affect. Awake, alert, oriented x3. ASSESSMENT AND PLAN: 1. Cellulitis and abscess of left 1st toe because of diabetic foot ulcer. Cultures with methicillin-resistant Staphylococcus aureus. Doing reasonably well on vancomycin but still some erythema when looked at today. Discussed with Surgery, plans on monitoring for a couple days. If it gets worse she will likely need additional amputation. If it remains stable or improved then likely home with extended course of vancomycin on Saturday or Saturday. 2. Diabetes mellitus type 2, control remains poor. Will further increase Lantus and sliding scale insulin. May have to increase further as the patient is on 110 units of Tresiba at home. 3. Hypertension. Acceptable control on current diltiazem. 4. Hyperlipidemia. Continue home statin. 5. Chronic kidney disease 3. Creatinine approximately stable on last check. 6. Mild aortic stenosis known. 7. Hypothyroidism. Continue home Synthroid. 8. Morbid obesity. Patient has been counseled on diet and exercise.
[2019-12-27] MEDS: CRESTOR PO SCH (20:26)
[2019-12-27] MEDS: DESYREL PO SCH (20:26)
[2019-12-27] MEDS: CARDIZEM LA PO SCH (21:32)
[2019-12-28] MEDS: NORCO-5 PO PRN ×2 (04:29→09:51)
[2019-12-28] MEDS: SYNTHROID PO SCH (06:33)
[2019-12-28] MEDS: HUMULIN R SUBQ SCH ×2 (06:33→12:19)
[2019-12-28 07:02] LABS: BASO# 0.06 X1000 (0.0-0.2); BASO% 1.2 % (0.0-0.8); EOS# 0.13 X1000 (0.0-0.7); EOS% 2.5 % (0.0-10.0); HEMATOCRIT 34.2 % (37.0-47.0); HEMOGLOBIN 9.9 g/dL (12.0-16.0); IMM GRAN# 0.05 X1000 (0.0-0.04); LYMPH# 1.02 X1000 (1.2-3.4); LYMPH% 19.9 % (20.5-51.1); MCH 27.8 PG (27-31); MCHC 28.9 g/dL (33-37); MCV 96.1 FL (81-99); MONO# 0.52 X1000 (0.11-0.59); MONO% 10.1 % (1.7-9.3); MPV 10.4 FL (7.4-10.4); NEUT# 3.35 X1000 (1.4-6.5); NEUT% 65.3 % (42.2-75.2); PLT 170 X1000 (130-400); RBC 3.56 XMIL (4.2-5.4); RDW 15.8 % (11.5-14.5); WBC 5.13 X1000 (4.8-10.8)
[2019-12-28 07:08] LABS: CALCIUM 8.5 mg/dL (8.8-10.2); CREATININE 1.3 mg/dL (0.5-0.9); MAGNESIUM 2.7 mg/dL (1.5-2.7); POTASSIUM 4.6 mmol/L (3.5-5.1)
[2019-12-28 07:11] LABS: INR 1.05; PROTIME 13.8 Seconds (11.0-16.0)
[2019-12-28] MEDS: VENTOLIN HFA INH PRN (07:48)
[2019-12-28] MEDS ORDERED: NS 0 ML ONE (08:26)
[2019-12-28] MEDS ORDERED: LANTUS INSULIN SUBQ SCH (09:00)
[2019-12-28] MEDS: LEXAPRO PO SCH (09:50)
[2019-12-28] MEDS: DITROPAN XL PO SCH (09:50)
[2019-12-28] MEDS: PERIDEX MT SCH (09:51)
[2019-12-28] MEDS: LOVENOX SUBQ SCH (09:51)
[2019-12-28] MEDS: NASONEX NASAL SPRAY NAS SCH (09:52)
[2019-12-28] MEDS: VICTOZA SUBQ SCH (09:52)
--- NOTE | 2019-12-28 10:47 | Diag Imaging Result Doc PS360 ---
EXAM: CHEST-1 VIEW HISTORY: PICC PLACEMENT TECHNIQUE: Single view COMPARISON: 12/22/2019 FINDINGS: There is a right-sided PICC line on the current exam. The tip is near the junction of the superior vena cava and right atrium. The lungs are well expanded. The heart is not enlarged. The vessels are not distended. There are no infiltrates. No effusion identified. IMPRESSION: Right-sided PICC line in good position Electronically signed by Grayson Hammond 12/28/2019 10:45 AM
[2019-12-28 10:54] VITALS: BP 138/48
[2019-12-28] MEDS ORDERED: NS 250 ML ONE (11:02)
[2019-12-28] MEDS: VANCOMYCIN 2,500 MG in NS 500 ML IV SCH (12:19)
--- NOTE | 2019-12-28 14:42 | ORTHOPAEDICS PROGRESS NOTE ---
DATE: 12/28/2019 SUBJECTIVE: Ms. Johnson is lying in bed this afternoon. Physical therapy is about to get her up and moving. OBJECTIVE: Left lower extremity exam: The toe is looking a little bit better today. There is no drainage. Just a little bit of slight erythema to the dorsal aspect of the toe, but not to the plantar aspect at all. ASSESSMENT: Status post left great toe partial amputation. PLAN: I discussed with Ms. Johnson about being discharged. I am going to try to get her discharged today. She will go home on IV vancomycin. She already has a PICC line in. She is going to see me in a week. She will remain nonweightbearing left lower extremity, and she is going to change her dressing daily. cc: MD Duarte Marroquin MD
--- NOTE | 2019-12-28 15:03 | DISCHARGE SUMMARY ---
ADMISSION DATE: 12/22/2019 DISCHARGE DATE: 12/28/2019 ADMITTING DIAGNOSES: 1. Left great toe infection with osteomyelitis. 2. Type 2 diabetes mellitus. 3. Chronic kidney disease. DISCHARGE DIAGNOSES: 1. Left great toe infection, status post left great toe amputation to the interphalangeal joint. 2. Type 2 diabetes. 3. Chronic kidney disease. PROCEDURE: On 12/24/2019, Dr. Suarez performed a left great toe amputation to the IP joint. HOSPITAL COURSE: Ms. Johnson is a 54-year-old female, who was admitted to the hospital after being seen in clinic. Dr. Suarez has been following this left great toe wound for some time. They tried oral antibiotics, but unfortunately the toe wound progressed. She did have lower extremity cellulitis and swelling. It was decided then that she be admitted to the hospital. She was started on IV antibiotics. On 12/24/2019, she was taken to the operating room where a left great toe amputation to the IP joint was performed. She tolerated that well and was transferred to the recovery room. After satisfactory recovery, she was transferred to [address] [place] [id number]. She has had an uneventful postoperative course. She has been continued on IV antibiotics and daily dressing changes have been done. She did have some erythema initially after surgery, but this has resolved and is improving. PHYSICAL EXAMINATION: Vital Signs: Today, her vital signs are temperature 97.8 degrees, pulse 49, blood pressure 138/48, and she is 89% on room air. I will get them to check that before she goes; the one before was 96% on room air. She has voided and had a bowel movement since surgery. She is tolerating fluids well. Her pain is well controlled. At this time, she is ready for discharge. DISCHARGE MEDICATIONS: [place] 5 mg p.o. 4 to 6 hours as needed for pain, aspirin 325 mg p.o. twice a day for DVT prophylaxis, Lexapro 20 mg p.o. daily, Ventolin 2 puffs b.i.d., Lantus insulin 70 units subcutaneous daily, Humulin per sliding scale, Synthroid 137 mcg daily, Victoza 1.8 mg subcutaneous daily, vancomycin pharmacy to dose x1 month IV, Ditropan XL 50 mg p.o. daily, Crestor 20 mg p.o. at bedtime, Desyrel 50 mg p.o. at bedtime. DISPOSITION: Persephone Johnson is going to be discharged home with home health. She does have a PICC line, and we have established continue on IV antibiotic therapy. She is going to follow up with Meredith Oconnor with Infectious Disease. She is going to manage her lab work and antibiotics. We are going to do vancomycin for a month. We will see her in 1 week in the office and reassess the dressing. She is to call with any erythema or drainage. She knows to call with any questions or concerns. Dictated by MARY Valle for Duarte Suarez MD cc: MARY Valle MD Siddharth Patel, MD
== END 2019-12-28 17:20 | disposition home health service (06) | DRG 256 ==
LOC: DIRADM 08:36 → EDIPHOLD 09:24 → 4N 14:06
PROVIDERS: ADMIT Internal Medicine; ATTEND Orthopaedic Surgery